=== PATIENT | female | born 1950 | race American Indian/Alaskan Native ===

== ENCOUNTER 2017-09-18 09:52 | Day surgery (SDC) | payer MEDICARE ==
[~2017-09-18 09:52] MED LIST: VERSED ONE; XYLOCAINE 2%/ EPI 1:200,000 INFILTRATI ONE; XYLOCAINE 2%/EPI 1:100,000 INFILTRATI ONE
[2017-09-18] MEDS ORDERED: DILAUDID IV PRN (11:43)
--- NOTE | 2017-09-18 11:43 | Anesthesia Consultation ---
Anesthesia Consult and Med Hx Date of service: 09/18/17 - Airway Anesthetic Teeth Evaluation: Bridges ROM Head & Neck: Adequate Mental/Hyoid Distance: Adequate Mallampati Class: Class II Intubation Access Assessment: Good - Pulmonary Exam CTA: Yes - Cardiac Exam Cardiac Exam: RRR - Pre-Operative Health Status ASA Pre-Surgery Classification: ASA2 Proposed Anesthetic Plan: MAC - Cardiovascular System Hx Hypertension: Yes (10 YEARS)
--- NOTE | 2017-09-18 11:43 | Anesthesia Day of Surgery ---
Anesthesia Day of Surgery - Day of Surgery Patient Examined: Yes Patient H&P Reviewed: Yes Patient is NPO: Yes
[2017-09-18] MEDS ORDERED: TETRACAINE 0.5% OS SCH (11:54)
[2017-09-18] MEDS: VIGAMOX OS SCH ×3 (12:00→12:13)
[2017-09-18] MEDS ORDERED: mitoMYcin 0.02% Opth Soln *OR USE ONLY OP ONE (13:11)
[2017-09-18] MEDS ORDERED: PRED FORTE 1% OS SCH (14:00)
[2017-09-18] MEDS ORDERED: XYLOCAINE 2%/ EPI 1:200,000 INFILTRATI ONE (14:45)
[2017-09-18] MEDS ORDERED: mitoMYcin 0.02% Opth Soln *OR USE ONLY OS ONE (14:45)
--- NOTE | 2017-09-18 15:12 | Short Stay Summary ---
Short Stay Documentation Date of service: 09/18/17 - History H&P: obtained from office - Allergies and Medications Current Medications: Allergies No Known Allergies Allergy (Verified 09/17/17 15:36) Home Medications Medication Instructions Recorded Confirmed Last Taken Type Atenolol [Tenormin] 50 mg PO DAILY 09/17/17 09/18/17 09/18/17 08:00 History Active Medications Hydromorphone HCl (Dilaudid) 0.25 mg IV Q10MIN PRN PRN Reason: Pain, Moderate (4-6) Stop: 09/19/17 06:00 Moxifloxacin HCl (Vigamox) 1 drops OS Q5MIN JOSE Stop: 09/20/17 12:01 Last Admin: 09/18/17 12:13 Dose: 1 drops Prednisolone Acetate (Pred Forte 1%) 1 drops OS QID JOSE Tetracaine HCl (Tetracaine 0.5%) 1 drops OS ONCE JOSE Stop: 09/18/17 23:59 Last Admin: 09/18/17 12:00 Dose: 1 drops - Brief post op/procedure progress note Date of procedure: 09/18/17 Pre-op diagnosis: left pterygium Post-op diagnosis: same Procedure: pterygium excsion w MMC and amniotic graft membrane left eye Anesthesia: MAC, local Surgeon: NALINI VELASCO Estimated blood loss: minimal Pathology: list (nasal pterygium) Specimen disposition: to lab - Disposition Condition at discharge: Good Disposition: DC-01 TO HOME OR SELFCARE - Discharge Diagnoses (1) Pterygium of eye Status: Resolved Qualifiers: Laterality: left Qualified Code(s): H11.002 - Unspecified pterygium of left eye Short Stay Discharge Plan Follow up with: ALE MAYS DO [Primary Care Provider] - 7 Days
--- NOTE | 2017-09-18 15:13 | Operative Report ---
Operative Report Operative Report: PREOPERATIVE DIAGNOSIS: Pterygium with visual distortion, _[left]_eye POSTOPERATIVE DIAGNOSIS: Pterygium with visual distortion, left eye OPERATIVE PROCEDURE: Excision of pterygium with mitomycin C and amniotic graft membrane left eye SURGEON: Cass Greene M.D. SPORT SHOE SPIKE ASSEMBLER SURGEON: river ANESTHESIA: Monitored anesthesia care KNIFE SETTER: COMPLICATIONS: None ALLERGIES: Chloroquine PREOPERATIVE NOTE: The risks, benefits and alternatives of surgery were explained to the patient who after confirmining understanding elected to proceed with surgery. The risks discussed included but were not limited to infection, further surgery, loss of vision, loss of the eye. The patient had multiple opportunities to ask questions and have them answered. Preoperative instruction sheet was provided and explained to the patient and/or family. PROGNOSIS: Excellent INDICATIONS FOR SURGERY: Distortion of vision from the lesion. Without treatment , permanent visual loss is expected. OPERATIVE REPORT: The patient was taken into the preoperative area and then sedated and monitored by Anesthesia. The patient was prepped by applying a Betadine scrub to the periorbital area, the adjacent cheek, and the forehead. The prepped areas were dried with sterile gauze. The patient was draped, and a speculum was placed between the eyelids. 2% lidocaine was injected below the body of the pterygium. A cut-down was made through the body of the pterygium to bare sclera. The dissection was then carried towards the limbus, elevating up the pterygium. Moderate bleeding was encountered and treated with cautery. Once the dissection was taken to the limbus, the head of the pterygium was dissected off the cornea with a Tooke knife. The pterygium was densely scarred into the underlying stroma, making the dissection process difficult to perform. A superficial dissection plane was made in a few areas. The mass of fibrous growth was then excised from the limbus. A rosario bur on a high-speed drill was used to smooth the area of the cornea where the pterygium was removed. This was done in order to leave the tissue smooth and minimize the chance of recurrence. A rough limbal surface increases the risks of irritation, inflammation, and the possibility of postoperative recurrence in the eye. The limbal area was smoothed with the rosario bur, and care was taken not to remove too much tissue, leaving the cornea ectatic. After the scar tissue was removed, Mitomycin-C was placed on bare sclera x 60 secs on the eye with Weck-patrick sponges and immediately irrigated off. The irrigation was done liberally to prevent any Mitomycin-C contamination to the rest of the field and the eye. The cornea was irrigated with balanced salt solution. Once the pterygium was excised and the cornea smoothed, cautery was used to control any bleeding in the bed of bare sclera. The peripheral edges of remaining conjunctiva around the bare sclera had its edges undermined slightly to allow it to be fixed to the underlying sclera when the tissue adhesive would be applied. Calipers were then used to measure the width and length of the area of bare sclera. After marking the tips of the calipers, they were used to katherine the amniotic graft. Scissors were next used to first undermine and then excise the graft. Fine-tooth forceps were used carefully to elevate the graft and moved to the area of the bare sclera. It was moved carefully to make sure that first of all the epithelial side remained upward . After the graft was found to be suitable for the area to be covered, it was temporarily moved off the bare sclera and Tisseel tissue adhesive was applied in its two components as separate stages over the area of bare sclera. The graft was placed back in position and its edges were first pushed down 360 to allow firm fixation. The central area was also pushed down with firm pressure from a flat surfaced instrument. Next the edges of the previously undermined adjacent conjunctiva were pushed down to allow firm fixation. The flap was allowed to stay unmanipulated for ten minutes prior to removing the lid speculum. MEDICATIONS APPLIED AT END OF SURGERY: bandage Contact lens was placed onto the eye fallowed by the application of Vigamox. DISCHARGE SUMMARY: The patient was released in stable condition. The patient and those with the patient were given a written sheet of postoperative instructions and counseling on any abnormal laboratory studies. They are to call immediately for difficulties.
[2017-09-18 16:41] VITALS: BP 138/70
== END 2017-09-18 16:00 | disposition home or self-care (01) ==
LOC: OR 09:52
DX: H11.002 Unspecified pterygium of left eye (principal); I10 Essential (primary) hypertension; Z79.899 Other long term (current) drug therapy
CPT/HCPCS: 65426; 88304; C9250; J2250; J7315; V2790

== ENCOUNTER 2017-12-11 06:32 | Day surgery (SDC) | payer MEDICARE ==
[2017-12-11] MEDS ORDERED: BSS ONE (06:55)
[2017-12-11] MEDS ORDERED: TOBRADEX ONE (06:56)
[2017-12-11] MEDS ORDERED: TETRACAINE 0.5% OD PRN (08:04)
[2017-12-11] MEDS ORDERED: LACTATED RINGERS 1,000 ML ONE (08:38)
[2017-12-11] MEDS: VIGAMOX OD SCH ×3 (08:40→08:50)
[2017-12-11] MEDS ORDERED: PERCOCET 5/325 PO PRN (08:54)
[2017-12-11] MEDS ORDERED: SUBLIMAZE IV PRN (08:54)
--- NOTE | 2017-12-11 08:56 | Anesthesia Day of Surgery ---
Anesthesia Day of Surgery - Day of Surgery Patient Examined: Yes Patient H&P Reviewed: Yes Patient is NPO: Yes Beta Blockers: Yes (atenolol)
--- NOTE | 2017-12-11 08:56 | Anesthesia Consultation ---
Anesthesia Consult and Med Hx Date of service: 12/11/17 - Airway Anesthetic Teeth Evaluation: Good ROM Head & Neck: Adequate Mental/Hyoid Distance: Adequate Mallampati Class: Class II Intubation Access Assessment: Good - Pulmonary Exam CTA: Yes - Cardiac Exam Cardiac Exam: RRR - Pre-Operative Health Status ASA Pre-Surgery Classification: ASA2 Proposed Anesthetic Plan: General - Pulmonary Hx Smoking: No Hx Respiratory Symptoms: No Hx Sleep Apnea: No (CARMEN PRE SCREEN LOW RISK) - Cardiovascular System Hx Hypertension: Yes (took atenolol today) Hx Heart Attack/AMI: No - Central Nervous System Hx Seizures: No CVA: No - Gastrointestinal Hx Gastroesophageal Reflux Disease: No - Endocrine Hx Renal Disease: No Hx Liver Disease: No Hx Insulin Dependent Diabetes: No Hx Thyroid Disease: No - Additional Comments Anesthesia Medical History Comments: No hx anesthetic complications.
[2017-12-11] MEDS ORDERED: VERSED IV NR (09:00)
[2017-12-11] MEDS ORDERED: LACTATED RINGERS 1,000 ML IV SCH (09:00)
[2017-12-11] MEDS ORDERED: GARAMYCIN ONE (09:39)
[2017-12-11] MEDS ORDERED: mitoMYcin 0.02% Opth Soln *OR USE ONLY OD ONE ×2 (10:00→10:44)
[2017-12-11] MEDS ORDERED: VERSED IV ONE (10:24)
[2017-12-11] MEDS ORDERED: BSS OD ONE (10:40)
[2017-12-11] MEDS ORDERED: XYLOCAINE 2%/EPI 1:100,000 INFILTRATI ONE (10:41)
[2017-12-11] MEDS ORDERED: XYLOCAINE 2%/ EPI 1:200,000 INFILTRATI ONE (10:42)
--- NOTE | 2017-12-11 11:09 | Operative Report ---
Operative Report Operative Report: Surgery date 12/11/2017 PREOPERATIVE DIAGNOSIS: Pterygium with visual distortion, _right_eye POSTOPERATIVE DIAGNOSIS: Pterygium with visual distortion, right eye OPERATIVE PROCEDURE: Excision of pterygium with mitomycin C and amniotic graft membrane right eye SURGEON: Cass Greene M.D. TRUCK DISPATCHER SURGEON: none ANESTHESIA: Monitored anesthesia care TELEPHONE SERVICE ADVISER: COMPLICATIONS: None ALLERGIES: None PREOPERATIVE NOTE: The risks, benefits and alternatives of surgery were explained to the patient who after confirmining understanding elected to proceed with surgery. The risks discussed included but were not limited to infection, further surgery, loss of vision, loss of the eye. The patient had multiple opportunities to ask questions and have them answered. Preoperative instruction sheet was provided and explained to the patient and/or family. PROGNOSIS: Excellent INDICATIONS FOR SURGERY: Distortion of vision from the lesion. Without treatment , permanent visual loss is expected. OPERATIVE REPORT: The patient was taken into the preoperative area and then sedated and monitored by Anesthesia. The patient was prepped by applying a Betadine scrub to the periorbital area, the adjacent cheek, and the forehead. The prepped areas were dried with sterile gauze. The patient was draped, and a speculum was placed between the eyelids. 2% lidocaine was injected below the body of the pterygium. A cut-down was made through the body of the pterygium to bare sclera. The dissection was then carried towards the limbus, elevating up the pterygium. Moderate bleeding was encountered and treated with cautery. Once the dissection was taken to the limbus, the head of the pterygium was dissected off the cornea with a Tooke knife. The pterygium was densely scarred into the underlying stroma, making the dissection process difficult to perform. A superficial dissection plane was made in a few areas. The mass of fibrous growth was then excised from the limbus. A rosario bur on a high-speed drill was used to smooth the area of the cornea where the pterygium was removed. This was done in order to leave the tissue smooth and minimize the chance of recurrence. A rough limbal surface increases the risks of irritation, inflammation, and the possibility of postoperative recurrence in the eye. The limbal area was smoothed with the rosario bur, and care was taken not to remove too much tissue, leaving the cornea ectatic. After the scar tissue was removed, Mitomycin-C was placed on bare sclera x 60 secs on the eye with Weck-patrick sponges and immediately irrigated off. The irrigation was done liberally to prevent any Mitomycin-C contamination to the rest of the field and the eye. The cornea was irrigated with balanced salt solution. Once the pterygium was excised and the cornea smoothed, cautery was used to control any bleeding in the bed of bare sclera. The peripheral edges of remaining conjunctiva around the bare sclera had its edges undermined slightly to allow it to be fixed to the underlying sclera when the tissue adhesive would be applied. Calipers were then used to measure the width and length of the area of bare sclera. After marking the tips of the calipers, they were used to katherine the amniotic graft. Scissors were next used to first undermine and then excise the graft. Fine-tooth forceps were used carefully to elevate the graft and moved to the area of the bare sclera. It was moved carefully to make sure that first of all the epithelial side remained upward . After the graft was found to be suitable for the area to be covered, it was temporarily moved off the bare sclera and Tisseel tissue adhesive was applied in its two components as separate stages over the area of bare sclera. The graft was placed back in position and its edges were first pushed down 360 to allow firm fixation. The central area was also pushed down with firm pressure from a flat surfaced instrument. Next the edges of the previously undermined adjacent conjunctiva were pushed down to allow firm fixation. The flap was allowed to stay unmanipulated for ten minutes prior to removing the lid speculum. MEDICATIONS APPLIED AT END OF SURGERY: bandage Contact lens was placed onto the eye fallowed by the application of Vigamox. DISCHARGE SUMMARY: The patient was released in stable condition. The patient and those with the patient were given a written sheet of postoperative instructions and counseling on any abnormal laboratory studies. They are to call immediately for difficulties.
--- NOTE | 2017-12-11 11:10 | Short Stay Summary ---
Short Stay Documentation Date of service: 12/11/17 - History H&P: obtained from office - Allergies and Medications Current Medications: Allergies No Known Allergies Allergy (Verified 09/17/17 15:36) Home Medications Medication Instructions Recorded Confirmed Last Taken Type Atenolol [Tenormin] 50 mg PO DAILY 09/17/17 12/04/17 09/18/17 08:00 History Dorzolamide HCl/Pf [Dorzolamide 2% 1 drop OP DAILY 12/04/17 12/04/17 Unknown History Eye Drop] Travoprost [Travatan Z] 1 drop OP DAILY 12/04/17 12/04/17 Unknown History Active Medications Fentanyl (Sublimaze) 25 mcg IV Q15MIN PRN PRN Reason: Pain , Severe (7-10) Stop: 12/11/17 20:00 Lactated Ringer's (Lactated Ringers) 1,000 mls @ 75 mls/hr IV DIRECT JOSE Last Admin: 12/11/17 08:45 Dose: 75 mls/hr Midazolam HCl (Versed) 2 mg IV ONCE NR Stop: 12/11/17 11:30 Last Admin: 12/11/17 08:53 Dose: 2 mg Moxifloxacin HCl (Vigamox) 1 drops OD Q5MIN JOSE Stop: 12/13/17 08:05 Last Admin: 12/11/17 08:50 Dose: 1 drops Oxycodone/Acetaminophen (Percocet 5/325) 1 tab PO ONCE PRN PRN Reason: Pain, Moderate (4-6) Stop: 12/11/17 15:00 Prednisolone Acetate (Pred Forte 1%) 1 drops OD QID JOSE Tetracaine HCl (Tetracaine 0.5%) 1 drops OD Q5M PRN PRN Reason: ANALGESIA Last Admin: 12/11/17 08:40 Dose: 1 drops - Brief post op/procedure progress note Date of procedure: 12/11/17 Pre-op diagnosis: right pterygium Post-op diagnosis: same Procedure: Pterygium excision with mitomycin C and admitted graft mapping placement right eye Anesthesia: MAC, local Surgeon: NALINI VELASCO Estimated blood loss: none Pathology: list (pterygium) Specimen disposition: to lab Condition: stable - Disposition Condition at discharge: Good Disposition: DC- TO HOME OR SELFCARE - Discharge Diagnoses (1) Pterygium of eye Status: Resolved Qualifiers: Laterality: right Qualified Code(s): H11.001 - Unspecified pterygium of right eye Short Stay Discharge Plan Follow up with: ALE MAYS DO [Primary Care Provider] - 7 Days
[2017-12-11 11:52] VITALS: BP 120/66
--- NOTE | 2017-12-11 13:28 | Post Anesthesia Evaluation ---
- Post Anesthesia Evaluation Patient Participated: Yes Airway Patent: Yes Stable Respiratory Function: Yes Nausea/Vomiting: No Temp > 96.8F: Yes Pain Manageable: Yes Adequeate Hydration: Yes Anesthesia Complications: No
[2017-12-11] MEDS ORDERED: PRED FORTE 1% OD SCH (14:00)
== END 2017-12-11 12:20 | disposition home or self-care (01) ==
LOC: OR 06:32
DX: H11.001 Unspecified pterygium of right eye (principal); I10 Essential (primary) hypertension; Z79.899 Other long term (current) drug therapy; Z90.710 Acquired absence of both cervix and uterus; Z98.890 Other specified postprocedural states
CPT/HCPCS: 65426; 88304; C9250; J1580; J2250; J7120; J7315; V2790